=== PATIENT | male | born 1985 | race Caucasian/White ===

== ENCOUNTER 2018-02-27 08:09 | Emergency (ER) | payer MEDICAID, OTHER ==
[~2018-02-27] VITALS: Ht 180.3 cm; Wt 79.5 kg
[2018-02-27] MEDS ORDERED: fentaNYL/PF 50MCG/1 ML 2ML syringe IV ONE (08:35)
[2018-02-27] MEDS ORDERED: ketorolac trometh. 30mg/ml inj. IV ONE (08:35)
[2018-02-27] MEDS ORDERED: ondansetron/PF 4mg/2ml inj IV ONE (08:35)
[2018-02-27] MEDS ORDERED: LORazepam 2 mg/ml vial IV ONE (08:35)
[2018-02-27] MEDS ORDERED: acetaminophen 325mg tablet PO ONE (09:25)
[2018-02-27 10:02] VITALS: BP 125/76
== END 2018-02-27 10:04 | disposition home or self-care (01) ==
LOC: ER 08:09
DX: M25.511 Pain in right shoulder (principal); R20.2 Paresthesia of skin; F12.90 Cannabis use, unspecified, uncomplicated; X58.XXXA Exposure to other specified factors, initial encounter; Y93.89 Activity, other specified; Y92.89 Other specified places as the place of occurrence of the external cause; Y99.8 Other external cause status
CPT/HCPCS: 73030; 96374; 96375; 99283; J1885; J2060; J2405; J3010